=== PATIENT | male | born 1965 | race Caucasian/White ===

== ENCOUNTER 2022-11-04 13:35 | Emergency (ER) | payer BC, SELFPAY ==
[2022-11-04 13:36] VITALS: BP 151/106; PULSE 70; RESP 18; TEMP 37.1; O2SAT 98
[2022-11-04 15:44] VITALS: BP 168/127; PULSE 71; RESP 15; TEMP 36.6; O2SAT 98
[2022-11-04] MEDS: methylPREDNISolone SOD SUCC 125 MG VIAL IM (16:19)
[2022-11-04 16:54] LABS: Strep Group A RT-PCR NOT DETECTED (Negative)
[2022-11-04 17:06] LABS: Influenza A QL RT-PCR Negative (Negative); Influenza B QL RT-PCR Negative (Negative); SARS-CoV-2 RNA PCR Negative
--- NOTE | 2022-11-04 17:27 | ED.SKABFB ---
HPI - Skin/Abscess/Foreign Bdy General Chief complaint: Skin/Abscess/Foreign Body Stated complaint: rash and facial swelling with bodyaches and fever Time Seen by Provider: 11/04/22 15:57 Source: patient, RN notes reviewed and old records reviewed Mode of arrival: ambulatory Limitations: no limitations History of Present Illness HPI narrative: This is a 57 year old male who presents for evaluation of facial rash and swelling. Patient reports he developed scalp sensitivity on , and he noted red rash to his fore head. He reports his rash worsened and he also had redness to right side of his face. He has also developed right eye swelling. He states this rash is itchy. He also reports chills and body aches with subjective fever. He was evaluated at his PCP clinic on Wednesday, and he was diagnosed with shingles with possible super imposed infection. He was started on valcyclovir and augmentin. He was also assessed by an tax appraiser to make sure he did not have herpes zoster opthalmicus. He states he was told he did not have any abnormalities to his eye but he was recommended to come to ER due to his facial rash. He denies any new exposures . He reports exposure to strep and he was visiting someone in hospital recently. Related Data Allergies Allergy/AdvReac Type Severity Reaction Status Date / Time No Known Allergies Allergy Mild Verified 11/04/22 13:35 Review of Systems Constitutional: Constitutional: Reports chills, Reports fever(s) and Denies weakness Eyes: Comments: itchy eyes Cardiovascular: Cardiovascular: Denies syncope, Denies rapid heart rate, Denies irregular heart rhythm, Denies leg edema and Denies dyspnea Respiratory: Respiratory: Denies chest congestion, Denies hemoptysis, Denies excessive phlegm production and Denies dyspnea Gastrointestinal: Gastrointestinal: Denies abdominal pain, Denies hematochezia, Denies diarrhea and Denies vomiting Genitourinary: Genitourinary: Denies hematuria, Denies dysuria, Denies penile discharge and Denies testicular pain Musculoskeletal: Musculoskeletal: Reports myalgias, Denies joint swelling, Denies loss of height and Denies muscle weakness Integumentary/Breasts: Skin/Breast: Reports pruritus, Reports erythema and Reports rash Neurologic: Denies syncope, Denies focal weakness and Denies weakness [facility] Past Medical History Medical History (Updated 11/05/22 @ 10:57 by Delma Santos NP) Essential (primary) hypertension Family History Family History Father Hypertension Family history of elevated blood lipids Cerebrovascular accident Family history of aortic aneurysm Family history of benign prostatic hyperplasia Mother Asthma Cerebrovascular accident Family history of malignant neoplasm of breast in first degree relative Grandparent Family history of Alzheimer's disease Social History Social History (Updated 11/02/22 @ 14:09 by Basil Goldstein MA) Smoking status: Never smoker Alcohol intake: current Lack of Transportation: No Lack of Food: Never True Current Housing: I Have Housing Concerned About Future Housing: No Difficulty Paying Gas/Electric Bills: No Difficulty Paying for Meds: No Currently Unemployed: No Education: Bachelor's Degree Difficulty w/ Childcare or Family Care: No Exam Const: General: no acute distress and alert Nutritional Appearance: well nourished Orientation/consciousness: patient oriented x3 HENMT: Head: no contusions and no hematomas Ears: TM's normal bilaterally Face/Nose/Sinus: Normal external nose present Mouth: Yes Normal oral and palatal mucosa present, Yes lip normal and Yes moist mucous membranes Throat: posterior oropharynx normal and uvula midline Other: mild right pinna swelling, scaly erythematous rash across entire fore head, bilateral periorbital edema worse on right. erythematous right cheek Eyes: Conjun
[2022-11-04 18:09] VITALS: BP 155/111; PULSE 72; RESP 16; TEMP 36.4; O2SAT 97
== END 2022-11-04 18:10 | disposition home or self-care (01) ==
PROVIDERS: Emergency Provider General Practice; PCP Family Medicine
DX: L30.9 Dermatitis, unspecified (principal); Z20.822 Contact with and (suspected) exposure to COVID-19; I10 Essential (primary) hypertension
CPT/HCPCS: 87636; 87651; 96372; 99283; J2930

== ENCOUNTER → 2023-05-19 11:33 | Outpatient (CLI) | payer BC, SELFPAY ==
--- NOTE | ~2023-05-19 | XR_ITS ---
Clinical Indication: Functional dyspepsia PA and lateral views of the chest: Comparison: 11/01/2012 Findings: There is a focal airspace opacity at the left lung base, nonspecific. Cardiomediastinal si lhouette is within normal limits. Bones and soft tissues are unremarkable. Impression: Focal airspace opacity left lung base, possibly small pulmonary nodule. Chest CT recommended to [facility] assess. Reviewed, dictated and finalized at location M. Impression: Focal airspace opacity left lung base, possibly small pulmonary nodule. Chest C T recommended to further assess.
== END ==
PROVIDERS: PCP Family Medicine; Visit Provider Family Medicine
DX: K30 Functional dyspepsia (principal); R91.8 Other nonspecific abnormal finding of lung field
CPT/HCPCS: 71046

== ENCOUNTER → 2023-05-25 08:15 | Outpatient (CLI) | payer BC, SELFPAY ==
--- NOTE | ~2023-05-25 | CT_ITS ---
EXAMINATION: CT diagnostic chest wo con DATE: 05/25/2023 08:27 INDICATION: Left basilar airspace opacity on chest radiograph TECHNIQUE: Computed tomography (CT) of the chest was performed without intravenous contrast. The dose -length product (DLP) was 365.39 mGy-cm. Automated exposure control and iterative reconstruction tech [employer] were employed. COMPARISON: 05/19/2023 FINDINGS: There is linear airspace opacity of the left lung base which appears to abut an area of foc al pleural thickening. Bronchiectasis and associated atelectasis are present in the medial aspect of the right lower lobe. No pleural effusion or pneumothorax. No pathologically enlarged thoracic lymph nodes are identified. The heart size is normal. There is mild thoracic spondylosis. IMPRESSION: 1. Probable rounded atelectasis of the left lower lobe corresponding to the chest radiographic findin g in question. Follow-up low-dose chest CT in six months is recommended. 2. Bronchiectasis and associated atelectasis in the medial aspect of the right lower lobe, likely seq uela of prior infection. Reviewed, dictated and finalized at location F. IMPRESSION: 1. Probable rounded atelectasis of the left lower lobe corresponding to the stephon st radiographic finding in question. Follow-up low-dose chest CT in six months is recommended. 2. Bronchiectasis and associated atelectasis in the medial aspect of the right lower lobe, likely sequela of prior infection.
== END ==
PROVIDERS: PCP Family Medicine; Visit Provider Family Medicine
DX: T17.800A Unspecified foreign body in other parts of respiratory tract causing asphyxiation, initial encounter (principal); J47.9 Bronchiectasis, uncomplicated; J98.11 Atelectasis; R93.89 Abnormal findings on diagnostic imaging of other specified body structures
CPT/HCPCS: 71250

== ENCOUNTER 2023-06-08 08:48 | Outpatient (CLI) | payer BC, SELFPAY ==
--- NOTE | ~2023-06-08 | XR_ITS ---
EXAMINATION: XR barium swallow w SBFT DATE: 06/08/2023 10:54 INDICATION: Functional dyspepsia with 6 months of burning discomfort TECHNIQUE: The patient drank thick barium, gas-producing crystals, and thin barium. Fluoroscopic spot radiographs of the hypopharynx and esophagus were obtained. Additional overhead radiographs were obt ained during the transit through the small bowel. Spot fluoroscopic images of the small bowel were o btained upon contrast reaching the cecum. Fluoroscopy exposure time was 3.3 minutes. A total of 5 ove rhead radiographs and 1400 fluoroscopic images were recorded. COMPARISON: None. FINDINGS: The pharynx is symmetric and without evidence of mass lesion or mucosal irregularity.The esophagus is normal without mass or stricture. Esophageal motility is normal. There is no hiatal hernia. There wa s no gastroesophageal reflux with provocative maneuvers. The stomach is normal. Transit time from the stomach to proximal colon was approximately 45 minutes. There is normal caliber and mucosal fold pattern throughout the small bowel. Terminal ileum is normal. No tethering or abn ormal mass effect observed upon the small bowel with real-time fluoroscopy. IMPRESSION: 1. Normal esophagram and small bowel follow-through. Reviewed, dictated and finalized at location A.
== END 2023-06-08 08:49 | disposition home or self-care (01) ==
PROVIDERS: PCP Family Medicine; Visit Provider Family Medicine
DX: K30 Functional dyspepsia (principal); R13.10 Dysphagia, unspecified; T17.800A Unspecified foreign body in other parts of respiratory tract causing asphyxiation, initial encounter
CPT/HCPCS: 74240